=== PATIENT | male | born 1980 | race Caucasian/White ===

== ENCOUNTER 2017-10-28 01:25 | Emergency (ER) | payer SELFPAY ==
[~2017-10-28] VITALS: Ht 165.1 cm; Wt 96.2 kg
[2017-10-28 01:31] VITALS: BP 160/98
--- NOTE | 2017-10-28 01:35 | NUR ---
PT TAKEN TO BED 11
--- NOTE | 2017-10-28 01:44 | NUR ---
PATIENT PRESENTS TO ED WITH C/O LEFT EYE PAIN. POSSIBLE MEDAL IN EYE YESTERDAY, PAINFUL TO OPEN EYE, TRIED WASHING WITH OTC EYE WASH WITH NO EFFECT. PT DENIES N/V/D; SKIN IS PINK/WARM/DRY; AAOX4 WITH EVEN AND STEADY GAIT; LUNGS CLEAR BL; HR EVEN AND REGULAR; PT DENIES ANY FEVER, CP, SOB, OR COUGH AT THIS TIME; PATIENT STATES PAIN OF 10/10 AT THIS TIME; VSS; PATIENT POSITIONED FOR COMFORT; HOB ELEVATED; BEDRAILS UP X2; BED DOWN. ER MD MADE AWARE OF PT STATUS.
--- NOTE | 2017-10-28 02:33 | NUR ---
Dr. George evaluating patient.
[2017-10-28] MEDS ORDERED: FLUORESCEIN OPTH STRIP 0.6 MG ONE (02:36)
[2017-10-28] MEDS ORDERED: TETRACAINE HCL/PF 0.5% OPTH 4 ML BTL ONE (02:36)
[2017-10-28] MEDS ORDERED: HYDROcodone/APAP 10/325 MG 1 TAB TAB PO STA (03:16)
[2017-10-28 03:36] VITALS: BP 149/93
--- NOTE | 2017-10-28 03:36 | NUR ---
Patient discharged with v/s stable. Written and verbal after care instructions given and explained. Patient alert, oriented and verbalized understanding of instructions. Ambulatory with steady gait. All questions addressed prior to discharge. ID band removed. Patient advised to follow up with PMD. Rx of GENTAMICIN SULFATE 0.3% AND NORCO 5MG-325MG given. Patient educated on indication of medication including possible reaction and side effects. Opportunity to ask questions provided and answered.
[2017-10-28] MEDS ORDERED: POLYVINYL ALCOHOL 1.4% OP 15 ML SOL OP SCH (09:00)
== END 2017-10-28 03:36 | disposition home or self-care (01) ==
LOC: MED 01:25
DX: S05.02XA Injury of conjunctiva and corneal abrasion without foreign body, left eye, initial encounter (principal); X58.XXXA Exposure to other specified factors, initial encounter; Y93.89 Activity, other specified; Y92.89 Other specified places as the place of occurrence of the external cause; Y99.8 Other external cause status
CPT/HCPCS: 90471; 90715; 99283